=== PATIENT | male | born 1965 | race Two or more races ===

== ENCOUNTER 2020-09-17 09:07 | Outpatient (CLI) | payer OTHER ==
[~2020-09-17 09:07] MED LIST: LEVSIN0.125 MG PO; PROTONIX40 MG PO; TRAMADOL HCL-AP1 TAB PO; ZANTAC300 MG PO
== END 2020-09-17 09:20 | disposition home or self-care (01) ==
LOC: SONOGRAMA 09:07
PROVIDERS: ATTEND General Practice
DX: M79.672 Pain in left foot (principal); M72.2 Plantar fascial fibromatosis

== ENCOUNTER 2020-09-30 13:26 | Outpatient (CLI) | payer OTHER | END 2020-09-30 13:44 | disposition home or self-care (01) | LOC: MRI 13:26 | PROVIDERS: ATTEND General Practice | DX: M79.672 Pain in left foot (principal); M72.2 Plantar fascial fibromatosis | CPT/HCPCS: 73718 ==

== ENCOUNTER 2021-07-27 05:53 | Day surgery (SDC) | payer OTHER ==
[2021-07-27] MEDS ORDERED: RECTICARE30 GM TOP (14:59)
[2021-07-27] MEDS ORDERED: PERCOCET 5-3251 EACH PO (14:59)
== END 2021-07-27 16:55 | disposition home or self-care (01) ==
LOC: CIR.AMB 05:53
PROVIDERS: ATTEND Surgery
DX: A63.0 Anogenital (venereal) warts (principal)

== ENCOUNTER 2024-09-27 06:05 | Day surgery (SDC) | payer OTHER ==
[2024-09-26 14:22] LABS: BASO % 0.2 % (0.1-1.2); EOS % 2.1 % (0.7-7.0); HEMATOCRIT 46.2 % (40.1-51.0); HEMOGLOBIN 15.7 g/dL (13.7-17.5); LYMPH # 2.45 (1.18-3.74); LYMPH % 50.6 % (19.3-53.1); MEAN CORPUSCULAR HEMOGLOBIN 31.4 pg (25.6-32.2); MONO # 0.49 (0.24-0.82); MONO % 10.1 % (4.7-12.5); NEUT # 1.76 (1.56-6.13); NEUT % 36.4 % (34.0-71.1); RED CELL DISTRIBUTION WIDTH 12.5 % (11.6-14.4)
[2024-09-26 14:28] LABS: PARTIAL THROMBOPLASTIN TIME 31.8 SECONDS (22.0-34.0); PROTHROMBIN TIME 10.9 SECONDS (9.0-11.5)
[2024-09-26 14:42] LABS: PLATELET COUNT 121 K/uL (163-369)
[2024-09-26 14:53] LABS: ALBUMIN 3.6 gm/dL (3.4-5.0); BILIRUBIN TOTAL 0.51 mg/dL (0.3-1.2); CALCIUM 8.7 mg/dL (8.5-10.1); CREATININE SERUM 1.13 mg/dL (0.70-1.30); GFR 66.19; GLOBULINA 3.5 G/DL (2.4-3.5); POTASSIUM 3.78 mEq/L (3.5-5.1); TOTAL PROTEIN 7.1 gm/dL (6.4-8.2)
[~2024-09-27 06:05] MED LIST changes: +PERCOCET 5-3251 EACH PO; +RECTICARE30 GM TOP
[2024-09-27] MEDS ORDERED: FLUMAZENIL 0.5 MG/5 ML ML IV STA (09:38)
[2024-09-27] MEDS ORDERED: fentaNYL CITRATE 50 MCG/ML AMPUL IV PUSH ONE (09:45)
[2024-09-27] MEDS ORDERED: DIPHENHYDRAMINE HCL 50 MG/ML VIAL 1ML IV ONE ×2 (09:45)
[2024-09-27] MEDS ORDERED: MIDAZOLAM HCL 2 MG/2 ML VIAL IV ONE (09:45)
== END 2024-09-27 11:15 | disposition home or self-care (01) ==
LOC: AMB-ENDOS 06:05
PROVIDERS: ATTEND Internal Medicine
DX: K57.30 Diverticulosis of large intestine without perforation or abscess without bleeding (principal); R19.4 Change in bowel habit; K21.9 Gastro-esophageal reflux disease without esophagitis; K29.00 Acute gastritis without bleeding